=== PATIENT | female | born 1950 | race Caucasian/White ===

== ENCOUNTER 2019-08-06 12:15 | Day surgery (SDC) | payer OTHER ==
--- NOTE | 2019-08-06 12:36 | RAD ---
PORTABLE CHEST: 08/06/2019 PROVIDED CLINICAL HISTORY: Foreign body. FINDINGS: The cardiac and mediastinal silhouette is within normal limits. Vascular calcification involves the a ortic arch. No focal consolidation, pleural fluid or pneumothorax apparent. Metallic clips are seen i n the left upper quadrant. There is a circular band-like radiodensity overlying the left upper quadra nt, the etiology and significance of which is uncertain. Correlation with objective clinical concern regarding foreign body recommended. IMPRESSION: 1. No evidence for an acute cardiopulmonary process. 2. Radiodensity overlying the left upper quadrant, as described. POS: OFF
[2019-08-06 13:58] LABS: #Basophils 0.1 thou/uL (0.0-0.2); #Eosinphils 0.1 thou/uL (0.0-0.7); #Monocytes 0.9 thou/uL (0.11-0.59); #Neutrophils 4.1 thou/uL (1.40-6.50); %Basophils 1.2 % (0.0-1.0); %Eosinophils 1.4 % (0.0-10.0); %Lymphocytes 27.8 % (21.0-51.0); %Monocytes 12.9 % (0.0-10.0); %Neutrophils 56.8 % (42.0-75.0); Hemoglobin 14.7 g/dL (12.0-16.0); Mean Corpuscular HGB CONC 34.2 g/dL (32.0-36.0); Mean Corpuscular Hemoglobin 32.9 pg (27.0-31.0); Mean Corpuscular Volume 96.2 fL (78.0-98.0); Platelet Count 152 thou/uL (130-400); RBC Distribution Width 12.9 % (11.5-14.5); Red Blood Cell (RBC) Count 4.48 mill/uL (4.20-5.40); White Blood Cell (WBC) Count 7.3 thou/uL (4.8-10.8)
[2019-08-06] MEDS ORDERED: Lidocaine 1% PF 5 ML VIAL ONE (14:00)
[2019-08-06] MEDS ORDERED: PROPOFOL 200 MG/20 ML VIAL ONE (14:00)
[2019-08-06] MEDS ORDERED: Ondansetron PF 4 MG/2 ML Vial ONE (14:00)
[2019-08-06 14:21] LABS: Anion Gap 12 mmol/L (10-20); BUN (Urea Nitrogen) 15 mg/dL (9.8-20.1); Calc. Creatinine Clearance 0 mL/min (70-130); Calcium 9.3 mg/dL (7.8-10.44); Carbon Dioxide 25 mmol/L (23-31); Estimated GFR-MDRD 51; Glucose 106 mg/dL (83-110); Potassium 4.2 mmol/L (3.5-5.1)
[2019-08-06 14:28] LABS: Chloride 106 mmol/L (98-107); Sodium 139 mmol/L (136-145)
--- NOTE | 2019-08-06 16:37 | OP ---
DATE OF PROCEDURE: 08/06/2019 PREPROCEDURE DIAGNOSES: 1. Suspected food bolus in the esophagus. 2. Previous history of fundoplication. 3. Previous history of bolus obstruction of the esophagus couple of years ago, at which time she was treated at [facility] [place]. ANESTHESIA: General endotracheal anesthesia. POSTOPERATIVE DIAGNOSIS: The patient is noted to be edentulous, likely contributing to her problems. She had esophagus full of white meat, likely pork from the top to the bottom. She has signs of fundoplication at the distal esophagus. No evidence of slippage, although anatomy cannot be fully identified from the gastric side secondary to retained food in the stomach, but there seems to be no overt stricture. RECOMMENDATIONS: 1. If she is going to not get denture, she needs to only have pureed meats and avoid breads. 2. I recommended to her sister that when she is back home, she will follow up with gastrologist through her PCP, and then in the meantime, has soft foods only and lots of liquids with them. PROCEDURE IN DETAIL: The patient was informed of the risks, benefits, and possible complications of endoscopy including perforation, bleeding, reaction to medication, and aspiration. Informed consent was obtained. The patient was brought to endoscopy suite, where she was sedated in a gradual fashion. Once she was comfortable and intubated, there was secure bite block was placed inside the orifice. The endoscope was advanced to the bite block into this stomach. She has no teeth in her oral cavity. I am intubating the esophagus, there was meat encountered right away. This was removed with a Pollack retrieval net serially until we removed everything down to about the GE junction. We were able to actually move past the range of bolus into the stomach easily. There was no overt stricture or esophagitis seen in retroflexed views. There was evidence of fundoplication. The full fundoplication could not be visualized because of large amount of food in the stomach. The other part of the stomach in the body and antrum, we were able to be visualized and were normal. The duodenum was normal. The scope was brought back and retroflexion performed to evaluate the cardia. Proximal body could not be fully seen in the stomach nor could the GE junction be fully seen. On forward views of the GE junction, there were no evidence of strictures or rings. The scope was then slowly removed. There was good visualization of the mucosa. There were no other lesions noted. The remainder of food particles were removed from the esophagus and oropharynx. The patient was extubated by Anesthesia once she was fully awakened and brought to recovery room in stable condition. Findings were discussed with the patient's sister. Should be discharged home. Job ID: [id number]
--- NOTE | 2019-08-06 21:06 | CON ---
DATE OF CONSULTATION: 08/06/2019 REASON FOR CONSULTATION: Bolus obstruction in the esophagus. HISTORY OF PRESENT ILLNESS: Ms. Yang is a 69-year-old female who reports that she was eating a pork chop around 9:30 this morning, when she felt it became stuck in her chest region behind the lower chest sternum, it was painful. She could not get it to go down or wash it down with water. She kept throwing up fluids. She was not able to handle secretions. She ultimately came to the emergency room. She was given some IV fluids and some glucagon with no response. With ongoing pain and the fact she had emesis cup, she was throwing up, they suspected bolus obstructing the esophagus and called me. In talking with the patient, this has happened in the past. She had a foreign body removed at [facility] [place] once before and then she went back few days later and had a dilatation she reports. She denies reflux. She states she was told she had esophageal ring, but later she notes that she also has had previous reflux surgery back in the 1970s or 80s. She denies any weight loss or hematemesis or melena. She has had no shortness of breath, fever, or chills. She has no problems breathing. She has no throat pain. PAST MEDICAL HISTORY: Reflux surgery, previous peptic ulcer disease, previous bolus obstruction in the esophagus 2 years ago, hypertension. PAST SURGICAL HISTORY: Ankle on the right, back x2, hysterectomy. ALLERGIES: NONE KNOWN. MEDICATIONS: Lisinopril. FAMILY HISTORY: Noncontributory. SOCIAL HISTORY: Negative for alcohol, drugs, or tobacco. Her primary physician is in [facility]. PHYSICAL EXAMINATION: VITAL SIGNS: Temperature is 98, pulse 87, respirations 16, blood pressure 130s/70s. GENERAL: She is edentulous. HEENT: Her oropharynx is without lesions. NECK: Supple without adenopathy. LUNGS: Clear. HEART: Regular rate and rhythm without clicks, rubs, or murmurs. ABDOMEN: Soft, nontender. LABORATORY DATA: White count 7.3, hemoglobin 14.7, platelet count 152. Basic metabolic profile is normal. ASSESSMENT: Suspected bolus obstructing the esophagus. This may be related to her previous Schatzki ring or previous reflux surgery. This has happened during the past and this is very similar symptoms. PLAN: EGD. The risks, benefits, and possible complications including perforation, bleeding, reaction to medication, and aspiration were all discussed with the patient and her sister who is at the bedside. We will proceed with that this afternoon. Job ID: [id number]
== END 2019-08-06 17:20 | disposition home or self-care (01) ==
LOC: ERS 12:15
PROVIDERS: ATTEND Internal Medicine Gastroenterology
PROC: 0DC58ZZ Extirpation of Matter from Esophagus, Via Natural or Artificial Opening Endoscopic (ICD-10-PCS; principal; 2019-08-06)
DX: T18.128A Food in esophagus causing other injury, initial encounter (principal); I10 Essential (primary) hypertension; Z79.899 Other long term (current) drug therapy; Z88.6 Allergy status to analgesic agent; Z98.890 Other specified postprocedural states
CPT/HCPCS: 71045; 80048; 85025; 93005; J2001; J2405; J2704